=== PATIENT | male | born 1940 | race Caucasian/White ===

== ENCOUNTER → 2016-04-07 | Outpatient (CLI) | payer MEDICARE, OTHER ==
[~2016-04-07] MED LIST: ASPIRIN EC81 MG PO; ASPIRIN LO-DOSE81 MG PO; BUTRANS1 EAC1; COREG12.5 MG PO; CPAP INH; CYMBALTA60 MG PO; DECADRON1 MG PO; DESYREL100 MG PO; DYAZIDE 37.5-21 EACH PO; EFFEXOR75 MG PO; FUROSEMIDE40 MG PO; K-TAB ER20 MEQ PO; LASIX40 MG PO; LEVOTHROID (SY50 MCG PO; LYRICA 50MG CAP50 MG PO; MOBIC15 MG PO; NORCO 5-325 TA1 EACH PO; NORVASC5 MG PO; PAIN RELIEF325 MG PO; PEPCID20 MG PO; PRESERVISION L1 EACH PO; ROXICODONE 5MG (5 MG PO; SENOKOT S (S1 TABLET PO; SEROQUEL25 MG PO; SEROQUEL50 MG PO; SKELAXIN800 MG PO; TESSALON PERLE100 MG PO; TYLENOL/COD#31 TAB PO; VITAMIN D-32000 UNI1 PO; XANAX0.5 MG PO; ZOCOR20 MG PO; [UNRECOGNIZED DRUG - OTHER] PO
== END | disposition disaster alternative care site (69) ==
LOC: GRAD 13:18
DX: J38.3 Other diseases of vocal cords (principal); R13.10 Dysphagia, unspecified
CPT/HCPCS: G8996; G8997; G8998

== ENCOUNTER → 2016-04-19 | Day surgery (SDC) | payer MEDICARE, OTHER ==
[~2016-04-19] VITALS: Ht 182.9 cm; Wt 107.0 kg
== END ==
LOC: GPOC 04-12 11:00 → GEND 07:01 → GPOC 11:00
PROC: 0DBN8ZZ Excision of Sigmoid Colon, Via Natural or Artificial Opening Endoscopic (ICD-10-PCS; principal; 2016-04-19)
DX: Z12.11 Encounter for screening for malignant neoplasm of colon (principal); D12.0 Benign neoplasm of cecum; D12.5 Benign neoplasm of sigmoid colon; K57.30 Diverticulosis of large intestine without perforation or abscess without bleeding; Z80.0 Family history of malignant neoplasm of digestive organs; I11.0 Hypertensive heart disease with heart failure; I50.30 Unspecified diastolic (congestive) heart failure; E03.9 Hypothyroidism, unspecified; F41.8 Other specified anxiety disorders; G47.33 Obstructive sleep apnea (adult) (pediatric); Z95.0 Presence of cardiac pacemaker; Z79.82 Long term (current) use of aspirin; Z79.899 Other long term (current) drug therapy
CPT/HCPCS: J2001; J7030

== ENCOUNTER → 2016-06-09 | Outpatient (CLI) | payer MEDICARE, OTHER | END | disposition disaster alternative care site (69) | LOC: GRAD 14:00 | DX: J38.3 Other diseases of vocal cords (principal); R13.10 Dysphagia, unspecified | CPT/HCPCS: G8996; G8997; G8998 ==

== ENCOUNTER → 2016-09-06 | Outpatient (CLI) | payer MEDICARE, OTHER | LOC: LGSMG 10:22 | DX: E87.1 Hypo-osmolality and hyponatremia (principal); R60.9 Edema, unspecified; I10 Essential (primary) hypertension ==